=== PATIENT | female | born 1995 | race Caucasian/White ===

== ENCOUNTER → 2024-04-16 12:10 | Outpatient (REF) | payer OTHER, SELFPAY | LOC: PNTC 12:10 | PROVIDERS: ATTENDING PHYSICIAN Advanced Practice Midwife | DX: O60.00 Preterm labor without delivery, unspecified trimester (principal); Z74.01 Bed confinement status | CPT/HCPCS: 76805 ==

== ENCOUNTER 2024-06-26 21:12 | Observation (INO) | payer OTHER, SELFPAY ==
[2024-06-26 21:34] VITALS: BP 115/83; BMI 24.8
[2024-06-26 22:22] LABS: % Basophils 0.1 % (0-2); % Eosinophils 0.7 % (0-6); % Immature Granulocytes 0.7 % (0-0.5); % Lymphocytes 16.9 % (20.5-51.1); % Monocytes 5.8 % (1.7-9.3); % Neutrophils 75.8 % (42.2-75.2); Absolute Eosinophils 0.1 10^3/uL (0-0.7); Absolute Immature Granulocytes 0.1 10^3/uL (0-0.05); Absolute Lymphocytes 1.7 10^3/uL (1.2-3.4); Absolute Monocytes 0.6 10^3/uL (0.1-0.6); Absolute Neutrophils 7.5 10^3/uL (1.4-6.5); Hemoglobin 10.3 g/dL (12.0-16.0); Mean Corp Hgb Conc. 33.2 g/dL (33.0-37.0); Mean Corpuscular Hgb 26.8 pg (27.0-31.0); Mean Corpuscular Volume 80.7 fL (81.0-99.0); Mean Platelet Volume 10.9 fL (7.4-10.4); Nucleated Red Blood Cells % 0 %; Platelet Count 285 10^3/uL (130-400); Red Blood Cell Count 3.84 10^6/uL (4.20-5.40); White Blood Cell Count 9.9 10^3/uL (4.8-10.8)
[2024-06-26 22:27] LABS: Urine Albumin Negative (Neg - Trace); Urine Bilirubin Negative (Negative); Urine Character Clear (Clear); Urine Color Yellow; Urine Glucose Negative (Negative); Urine Ketone Negative (Negative); Urine Leukocyte 1+ (Negative); Urine Nitrite Negative (Negative); Urine Occult Blood Negative (Negative); Urine Urobilinogen Negative (Neg - 1+)
[2024-06-26 22:37] LABS: Urine Bacteria Few (Negative); Urine Red Blood Cell 0-2 /HPF (0-2); Urine Squamous Cell >30 /LPF (Few)
[2024-06-26 22:44] LABS: ALT (SGPT) 688 U/L (0-35); AST (SGOT) 457 U/L (14-36); Albumin 3.5 g/dl (3.5-5.0); Alkaline Phosphatase 278 U/L (38-126); Blood Urea Nitrogen 8 mg/dl (7-17); Calcium 9.4 mg/dl (8.4-10.2); Carbon Dioxide 23 mmol/L (22-30); Chloride 107 mmol/L (98-107); Estimated Creatinine Clearance 124 ml/min; Glucose 99 mg/dl (70-99); Potassium 4.1 mmol/L (3.5-5.1); Sodium 140 mmol/L (135-145); Total Bilirubin 0.8 mg/dl (0.2-1.3); Total Protein 6.7 g/dl (6.3-8.2); eGFR > 60.00
[2024-06-26 22:58] LABS: Uric Acid 3.5 mg/dl (2.5-6.2)
[2024-06-26] MEDS: ACTIGALL PO (23:02)
[2024-06-26 23:28] LABS: Protein/creatinine Ratio 0.3; Urine Protein 15 mg/dl
[2024-06-26 23:43] LABS: INR 0.94; PT 12.9 Sec (11.4-14.6)
[2024-06-27 06:18] LABS: Hematocrit 28.5 % (37.0-47.0); Hemoglobin 9.4 g/dL (12.0-16.0); Mean Corpuscular Hgb 26.9 pg (27.0-31.0); Mean Corpuscular Volume 81.4 fL (81.0-99.0); Mean Platelet Volume 11.3 fL (7.4-10.4); Platelet Count 254 10^3/uL (130-400); Red Cell Dist. Width 12.7 % (11.5-14.5); White Blood Cell Count 9.7 10^3/uL (4.8-10.8)
[2024-06-27 06:41] LABS: ALT (SGPT) 644 U/L (0-35); AST (SGOT) 408 U/L (14-36); Albumin 3.4 g/dl (3.5-5.0); Alkaline Phosphatase 259 U/L (38-126); Blood Urea Nitrogen 7 mg/dl (7-17); Calcium 8.7 mg/dl (8.4-10.2); Carbon Dioxide 21 mmol/L (22-30); Chloride 108 mmol/L (98-107); Estimated Creatinine Clearance 124 ml/min; Glucose 82 mg/dl (70-99); Potassium 3.9 mmol/L (3.5-5.1); Sodium 138 mmol/L (135-145); Total Bilirubin 0.9 mg/dl (0.2-1.3); Total Protein 6.3 g/dl (6.3-8.2); eGFR > 60.00
--- NOTE | 2024-06-27 06:47 | CON.GI ---
Addendum entered and electronically signed by Gabrielle Tang MD 06/27/24 13:16:
I saw and examined the patient.
The SKIRT PANEL ASSEMBLER's note was reviewed and I agree with the note.
29 y/o female POA 31 weeks hx prior childbirth x 3 and no other med issues noted with onset of itchiness in hands and feet. She has labs check OP with report bile salts of 29 and elevation of AST and ALT and admitted for evaluation. On admission
noted with bili 0.8, AST 457, ALT 688, alk phos 278, INR 0.94, WBC 9.9, hbg 10,,3 platelets 285, urine neg bili but + 1 leukocytes, 6-10 WBC and few bacteremia with urine chlamydia/gonorrhoeae pending. Labs several hours after admission with slight
improvement of bili 0.9, AST 408, ALT 644, alk phos 259. 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 Per TILE PRESSER she did have hep C ab and Hep
Bsag neg early in . Only recent travel was to [place]. Vital signs on admission with stable Bp 115/83, HR 86 and remains afebrile.
-increased LFT's primary transaminase elevation. Preserved synthetic function. baseline labs not available. No change in mental status. No preeclampsia.
-itchiness palms and feet/ elevated bile salt level/ hx cholestasis with in past
plan
Possible differential- related liver disease vs viral etiology vs others
Will check hepatitis serology including hep E, also will add HSV/CMV/EBV serology
check tylenol level
Ultrasound abdomen with Doppler
Continue to trend LFT/ INR
continue further care as per OB
Original Note:
Consultation
-
Date/Time Consultation Requested: 06/26/24 2230
Date/Time Consultation Performed: 06/27/24 0800
Requesting Provider: Venita Bowling DO
Performing Provider: YAEL Jerome, Gabrielle Tang MD
Reason for Consultation: increased LFT's
Medical History
Chief Complaint / HPI
Chief Complaint: itching in hand and feet
History of Present Illness:
Pt is a 29yo currently 31 weeks hx prior childbirth x 3 and no other med issues. She admits to labor with first child and cholestasis with 2 of her children. She has been followed by nurse adjunct faculty mathematics department prior to admission and now noted
with onset of itchiness in hands and feet. She has labs check OP with report bile salts of 29 and elevation of AST and ALT and presents for evaluation. On admission noted with bili 0.8, AST 457, ALT 688, alk phos 278, INR 0.94, WBC 9.9, hbg 10,,3
platelets 285, urine neg bili but + 1 leukocytes, 6-10 WBC and few bacteremia with urine chlamydia/gonorrhoeae pending. Labs several hours after admission with slight improvement of bili 0.9, AST 408, ALT 644, alk phos 259. Pt admits to prior
cholestasis but denies any ETOH use, prior hepatitis, IVDA, and only supplement occasional Tylenol use but denies excessive use. Per TILE PRESSER she did have hep C ab and Hep Bsag neg early in . Only recent travel was to [place]. Vital signs on
admission with stable Bp 115/83, HR 86 and remains afebrile.
She admits to fatigue, itchiness and dark urine and some chronic shortness of breath, blurred vision, nausea and constipation ongoing with . She denies fever, chills, dysphagia, GERD, vomiting, abdominal pain, diarrhea,
constipation, or rectal bleeding. She also admits to some dysuria that has resolved.
Past Medical History
Past Medical History: Other ( with first child, prior cholestasis with )
Past Surgical History: Other (oral surgery, childbirth x 3 in past )
Social History
Tobacco: Non-Smoker
Alcohol: None
Drug: None
Living: With Family
Employment: Not Employed
Family History
Family History: Other (denies family hx liver issues )
Allergies / Home Medications
Allergy/AdvReac Type Severity Reaction Status Date / Time
No Known Allergies Allergy Unverified 06/26/24 21:37
�Medication �Instructions �Recorded
Vitamin 1 tab PO DAILY 06/26/24
Review of Systems
-
History Source: Patient
Constitutional: Reports Weight Gain (with ) and Fatigue
EENT: Reports Other (burred vision)
Respiratory: Reports Trouble Breathing (chronic with )
Cardiac: Reports No Symptoms
Abdomen/GI: Reports Nausea
: Reports Dysuria and Dark Urine
Musculoskeletal: Reports No Symptoms
Skin: Reports Itching (palms and feet )
Neurological: Reports No Symptoms
Endocrine: Reports No Symptoms
Hematologic/Lymphatic: Reports No Symptoms
Vital Signs
Temp Pulse Resp BP
98.0 F 86 18 115/83
06/26/24 21:34 06/26/24 21:34 06/26/24 21:34 06/26/24 21:34
Physical Exam
Exam
General: Well Developed, Well Nourished and No Apparent Distress
HEENT: Normocephalic and Anicteric
Respiratory: Clear
Cardiac: Regular Rhythm
GI: Soft, Non Tender and Distended (with pregancy )
Musculoskeletal: No Clubbing and No Cyanosis
Skin: Warm and Dry
Neuro: Awake and Alert
Psych: Calm
Results
WBC 9.7 10^3/uL (4.8-10.8) 06/27/24 05:27
Hgb 9.4 g/dL (12.0-16.0) L 06/27/24 05:27
Hct 28.5 % (37.0-47.0) L 06/27/24 05:27
MCV 81.4 fL (81.0-99.0) 06/27/24 05:27
Plt Count 254 10^3/uL (130-400) 06/27/24 05:27
Absolute Neuts (auto) 7.5 10^3/uL (1.4-6.5) H 06/26/24 22:11
PT 12.9 Sec (11.4-14.6) 06/26/24 23:19
INR 0.94 06/26/24 23:19
Sodium 138 mmol/L (135-145) 06/27/24 05:27
Potassium 3.9 mmol/L (3.5-5.1) 06/27/24 05:27
Chloride 108 mmol/L (98-107) H 06/27/24 05:27
Carbon Dioxide 21 mmol/L (22-30) L 06/27/24 05:27
BUN 7 mg/dl (7-17) 06/27/24 05:27
Creatinine 0.4 mg/dL (0.6-1.0) L 06/27/24 05:27
Calcium 8.7 mg/dl (8.4-10.2) 06/27/24 05:27
Total Bilirubin 0.9 mg/dl (0.2-1.3) 06/27/24 05:27
AST 408 U/L (14-36) H 06/27/24 05:27
ALT 644 U/L (0-35) H* 06/27/24 05:27
Alkaline Phosphatase 259 U/L (38-126) H 06/27/24 05:27
Diagnostic Image Results:
06/27 US abd with ingrid- Pending
Assessment / Plan
-
Pt is a 29yo currenty 31 weeks hx prior childbirth x 3 and no other med issues. She admits to labor with first child and cholestasis with 2 of her children. She has been followed by nurse adjunct faculty [employer] department prior to admission and now noted
with onset of itchiness in hands and feet. She has labs check OP with report bile salts of 29 and elevation of AST and ALT and presents for evaluation. On admission noted with bili 0.8, AST 457, ALT 688, alk phos 278, INR 0.94, WBC 9.9, hbg 10,,3
platelets 285, urine neg bili but + 1 leukocytes, 6-10 WBC and few bacteremia with urine chlamydia/gonorrhoeae pending. Labs several hours after admission with slight improvement of bili 0.9, AST 408, ALT 644, alk phos 259. Pt admits to prior
cholestasis but denies any ETOH use, prior hepatitis, IVDA, and only supplement occasional Tylenol use but denies excessive use. Per TILE PRESSER she did have hep C ab and Hep Bsag neg early in . Only recent travel was to [place]. Vital signs on
admission with stable Bp 115/83, HR 86 and remains afebrile.
-increased LFT's primary transaminase elevation
-itchiness palms and feet
-elevated bile salt level
-hx cholestasis with in past
-occasional Tylenol use
PLAN:
etiology of rise in LFT's unclear-- TILE PRESSER following for underlying Etiology with hx prior cholestasis with prior and elevated bile salts vs viral vs other
check US abd with doppler to exclude underlying liver or vascular issues
NPO prior to US then resume diet
add hepatitis panel including hepatitis E
check Tylenol level with occasional use
trend LFT's- slight improvement this am
INR and platelets normal with good synthetic function of liver -- cont to trend
add viral etiology CMV, HSV, EBV
reviewed with Dr. Kwan and Dr. Mojica
will follow
-
-
-
Thank you for consultation and allowing me to participate in the patient's care. Please call the operations supervisor 2nd shift GI physician during the after hours with any questions or concerns.
[2024-06-27] MEDS: ACTIGALL 300 MG PO ×3 (07:58→22:11)
[2024-06-27] MEDS: CELESTONE SOLUSPAN 2 MG IM (08:01)
[2024-06-27 15:43] LABS: Acetaminophen < 10 ug/ml (10-30)
[2024-06-27] MEDS: LR 1000 IV (16:14)
[2024-06-27 18:55] LABS: Hepatitis B Surface Antigen Negative (Negative)
[2024-06-27 19:12] LABS: Hepatitis B Core Ab, Total Negative (Negative); Hepatitis B Surface Antibody Negative; Hepatitis C Antibody Negative (Negative)
[2024-06-27 20:12] LABS: Hepatitis A Antibody, Total Positive (Negative)
[2024-06-27 21:07] LABS: Hepatitis A IgM Antibody Negative (Negative)
[2024-06-27 21:53] LABS: 24 Hour Urine Total Volume 2450 ml
[2024-06-27 22:20] LABS: 24 Hour Urine Creatinine 0.842 gm/day (0.8-1.8); 24 Hour Urine Protein 367.5 mg/day (42-225); Urine Protein 15 mg/dl (0-12)
[2024-06-28] MEDS: FEOSOL 325 MG PO (07:46)
[2024-06-28] MEDS: ACTIGALL 300 MG PO (07:46)
[2024-06-28] MEDS: CELESTONE SOLUSPAN 2 MG IM (07:48)
[2024-06-28 09:32] LABS: Hematocrit 27.4 % (37.0-47.0); Hemoglobin 9.2 g/dL (12.0-16.0); Mean Corp Hgb Conc. 33.6 g/dL (33.0-37.0); Mean Corpuscular Hgb 27.1 pg (27.0-31.0); Mean Corpuscular Volume 80.6 fL (81.0-99.0); Mean Platelet Volume 10.8 fL (7.4-10.4); Platelet Count 269 10^3/uL (130-400); White Blood Cell Count 10.4 10^3/uL (4.8-10.8)
[2024-06-28 09:39] LABS: PT 12.6 Sec (11.4-14.6)
[2024-06-28 09:51] LABS: ALT (SGPT) 684 U/L (0-35); AST (SGOT) 472 U/L (14-36); Albumin 3.2 g/dl (3.5-5.0); Alkaline Phosphatase 238 U/L (38-126); Blood Urea Nitrogen 7 mg/dl (7-17); Calcium 8.8 mg/dl (8.4-10.2); Carbon Dioxide 23 mmol/L (22-30); Chloride 106 mmol/L (98-107); Estimated Creatinine Clearance 124 ml/min; Glucose 136 mg/dl (70-99); Potassium 4.1 mmol/L (3.5-5.1); Sodium 138 mmol/L (135-145); Total Bilirubin 0.5 mg/dl (0.2-1.3); Total Protein 6.2 g/dl (6.3-8.2); eGFR > 60.00
--- NOTE | 2024-06-28 15:36 | W.PN.UPDATE ---
Addendum entered and electronically signed by Gabrielle Tang MD 06/28/24 16:51:
correction ( error with dictation software ) -informed patient I am not certain about why her liver enzymes were elevated.
Original Note:
Update Note
Progress Note Update
When I went to see the patient this a.m. patient was already discharged by OB team-patient is about to leave. Advised OB team to repeat labs prior to discharge. Informed patient I am certain about why her liver enzymes were elevated. Most of
viral serology ordered were pending. If patient to be discharged recommend close follow-up with OB with repeat labs. If remains elevated will recommend referral to tertiary liver center for further eval
[2024-06-29 18:38] LABS: EBV-EA (D) Ab IgG 40.1 U/mL (0.0-10.9); EBV-VCA IgG Antibodies >750.0 U/mL (0.0-21.9); EBV-VCA IgM Antibodies 31.3 U/mL (0.0-43.9)
[2024-06-29 19:19] LABS: CMV IgM Antibody <8.0 AU/mL (<=29.9)
[2024-06-29 21:46] LABS: CMV IgG Antibody <0.20 U/mL (<=0.70)
[2024-06-30 03:36] LABS: HSV 1/2 Combined Screen, IgG 2.45 IV
[2024-06-30 15:15] LABS: HSV 1 Glycoprotein G Ab, IgG 1.51 IV (<=0.89); HSV 2 Glycoprotein G Ab, IgG 1.33 IV (<=0.89)
== END 2024-06-28 10:00 | disposition home or self-care (01) ==
LOC: LDRP 21:12
PROVIDERS: Nurse Practitioner Adult Health; ADMITTING PHYSICIAN Obstetrics & Gynecology; CONSULT PHYSICIAN Internal Medicine Gastroenterology
DX: O26.643 Intrahepatic cholestasis of pregnancy, third trimester (principal); K76.89 Other specified diseases of liver; O99.013 Anemia complicating pregnancy, third trimester; D64.9 Anemia, unspecified; O26.893 Other specified pregnancy related conditions, third trimester; L29.9 Pruritus, unspecified; Z3A.31 31 weeks gestation of pregnancy; R79.89 Other specified abnormal findings of blood chemistry; O09.213 Supervision of pregnancy with history of pre-term labor, third trimester; O99.613 Diseases of the digestive system complicating pregnancy, third trimester; K59.00 Constipation, unspecified; H53.8 Other visual disturbances; R11.0 Nausea; R06.02 Shortness of breath; R16.0 Hepatomegaly, not elsewhere classified; Z91.199 Patient's noncompliance with other medical treatment and regimen due to unspecified reason
CPT/HCPCS: 59025; 76700; 76816; 80053; 80143; 81003; 81015; 81050; 82570; 84156; 84550; 85025; 85027; 85610; 86644; 86645; 86663; 86664; 86665; 86694; 86695; 86696; 86704; 86706; 86708; 86709; 86803; 86850; 86900; 86901; 87340; 87491; 87591; 93975; G0378

== ENCOUNTER → 2024-07-05 08:19 | Outpatient (REF) | payer OTHER, SELFPAY | LOC: PNTC 08:19 | PROVIDERS: ATTENDING PHYSICIAN Obstetrics & Gynecology | DX: O26.611 Liver and biliary tract disorders in pregnancy, first trimester (principal) | CPT/HCPCS: 59025; 76815 ==

== ENCOUNTER → 2024-07-09 09:39 | Outpatient (REF) | payer OTHER, SELFPAY | LOC: PNTC 09:39 | PROVIDERS: ATTENDING PHYSICIAN Obstetrics & Gynecology | DX: O26.619 Liver and biliary tract disorders in pregnancy, unspecified trimester (principal) | CPT/HCPCS: 59025 ==

== ENCOUNTER → 2024-07-12 08:07 | Outpatient (REF) | payer OTHER, SELFPAY | LOC: PNTC 08:07 | PROVIDERS: ATTENDING PHYSICIAN Obstetrics & Gynecology | DX: O26.619 Liver and biliary tract disorders in pregnancy, unspecified trimester (principal) | CPT/HCPCS: 59025; 76815 ==

== ENCOUNTER → 2024-07-16 10:49 | Outpatient (REF) | payer OTHER, SELFPAY | LOC: PNTC 10:49 | PROVIDERS: ATTENDING PHYSICIAN Obstetrics & Gynecology | DX: O26.619 Liver and biliary tract disorders in pregnancy, unspecified trimester (principal) | CPT/HCPCS: 59025 ==

== ENCOUNTER → 2024-07-19 08:24 | Outpatient (REF) | payer OTHER, SELFPAY | LOC: PNTC 08:24 | PROVIDERS: ATTENDING PHYSICIAN Advanced Practice Midwife | DX: O26.619 Liver and biliary tract disorders in pregnancy, unspecified trimester (principal) | CPT/HCPCS: 59025; 76815 ==

== ENCOUNTER → 2024-07-23 09:16 | Outpatient (REF) | payer OTHER, SELFPAY | LOC: PNTC 09:16 | PROVIDERS: ATTENDING PHYSICIAN Advanced Practice Midwife | DX: O26.619 Liver and biliary tract disorders in pregnancy, unspecified trimester (principal) | CPT/HCPCS: 59025 ==

== ENCOUNTER → 2024-07-26 08:34 | Outpatient (REF) | payer OTHER, SELFPAY | LOC: PNTC 08:34 | PROVIDERS: ATTENDING PHYSICIAN Advanced Practice Midwife | DX: O26.619 Liver and biliary tract disorders in pregnancy, unspecified trimester (principal) | CPT/HCPCS: 59025; 76816 ==

== ENCOUNTER → 2024-08-02 08:47 | Outpatient (REF) | payer OTHER, SELFPAY | LOC: PNTC 08:47 | PROVIDERS: ATTENDING PHYSICIAN Advanced Practice Midwife | DX: O26.649 Intrahepatic cholestasis of pregnancy, unspecified trimester (principal); O26.619 Liver and biliary tract disorders in pregnancy, unspecified trimester | CPT/HCPCS: 59025; 76815 ==

== ENCOUNTER 2024-08-05 04:22 | Inpatient (IN) | payer OTHER, SELFPAY ==
[2024-08-05 04:34] VITALS: BMI 26.6
[2024-08-05 04:51] VITALS: BP 124/90
[2024-08-05] MEDS: LR 1000 IV ×2 (05:45→08:27)
[2024-08-05 05:58] LABS: % Basophils 0.1 % (0-2); % Eosinophils 0.4 % (0-6); % Lymphocytes 12.6 % (20.5-51.1); % Monocytes 5.3 % (1.7-9.3); % Neutrophils 80.6 % (42.2-75.2); Absolute Eosinophils 0.1 10^3/uL (0-0.7); Absolute Immature Granulocytes 0.1 10^3/uL (0-0.05); Absolute Lymphocytes 1.7 10^3/uL (1.2-3.4); Absolute Monocytes 0.7 10^3/uL (0.1-0.6); Absolute Neutrophils 10.9 10^3/uL (1.4-6.5); Hematocrit 30.6 % (37.0-47.0); Hemoglobin 10.1 g/dL (12.0-16.0); Mean Corpuscular Hgb 26.7 pg (27.0-31.0); Nucleated Red Blood Cells % 0 %; Platelet Count 226 10^3/uL (130-400); Red Blood Cell Count 3.78 10^6/uL (4.20-5.40); Red Cell Dist. Width 16.2 % (11.5-14.5); White Blood Cell Count 13.5 10^3/uL (4.8-10.8)
[2024-08-05 06:11] LABS: ALT (SGPT) 27 U/L (0-35); AST (SGOT) 29 U/L (14-36); Albumin 3.8 g/dl (3.5-5.0); Alkaline Phosphatase 194 U/L (38-126); Blood Urea Nitrogen 7 mg/dl (7-17); Calcium 9.1 mg/dl (8.4-10.2); Carbon Dioxide 20 mmol/L (22-30); Chloride 110 mmol/L (98-107); Estimated Creatinine Clearance 119 ml/min; Glucose 103 mg/dl (70-99); Potassium 4.3 mmol/L (3.5-5.1); Sodium 137 mmol/L (135-145); Total Bilirubin 0.3 mg/dl (0.2-1.3); Total Protein 6.9 g/dl (6.3-8.2); eGFR > 60.00
[2024-08-05] MEDS: PENICILLIN 110 UNITS IV (06:22)
[2024-08-05] MEDS: SUBLIMAZE 100 MCG EPIDURAL (09:23)
[2024-08-05] MEDS: FENTANYL/BUPIVACAINE 100 EPIDURAL (09:23)
[2024-08-05] MEDS: PITOCIN 30 UNITS/NSS 500 ML IV (09:52)
[2024-08-05] MEDS: PENICILLIN 55 UNITS IV ×2 (10:02→14:14)
[2024-08-05] MEDS: BENADRYL 25 MG IV (11:16)
[2024-08-05] MEDS: MOTRIN 600 MG PO (21:57)
[2024-08-06] MEDS: MOTRIN 600 MG PO ×3 (08:15→22:34)
[2024-08-06] MEDS: FEOSOL 325 MG PO (09:47)
[2024-08-06] MEDS: SENOKOT-S 1 TABLET PO (09:47)
[2024-08-06 21:36] LABS: Bile Acids (Cholylglycine) 8 umol/L (0-10)
[2024-08-07] MEDS: TYLENOL PO (05:23)
[2024-08-07] MEDS: MOTRIN 600 MG PO ×3 (05:23→15:52)
[2024-08-07] MEDS: FEOSOL 325 MG PO (09:44)
[2024-08-07] MEDS: SENOKOT-S 1 TABLET PO (09:44)
--- NOTE | 2024-08-07 13:41 | CM ---
CM reviewed chart, reviewed with nurse, mother seen regarding PPD screening score. Mother seen bedside with and child, congratulated mother on of son. Mother reports she resides at home with her and her three other children,
ages 12,m10, and 7. Mother reports support of grandparents who are currently watching older children when not in school. Mother confirms supplies needed for child. [facility] as it was recommended to her,
reports her other children attend a separate [employer] but would be interested in transferring to [facility]. Mother interested in maternal VN program, would like to hold off on referral but interested in receiving information, brochure and additional
information provided to mother regarding maternal VN program and support/additional resources.
Plan; home with family, resources provided
[2024-08-07] MEDS: TYLENOL 650 MG PO (15:53)
== END 2024-08-07 17:00 | disposition home or self-care (01) | DRG 807 ==
LOC: LDRP 04:22
PROVIDERS: ADMITTING PHYSICIAN Advanced Practice Midwife
PROC: 10907ZC Drainage of Amniotic Fluid, Therapeutic from Products of Conception, Via Natural or Artificial Opening (ICD-10-PCS; 2024-08-05)
PROC: 6A550ZT Pheresis of Cord Blood Stem Cells, Single (ICD-10-PCS; 2024-08-05)
PROC: 10E0XZZ Delivery of Products of Conception, External Approach (ICD-10-PCS; 2024-08-05)
DX: O26.643 Intrahepatic cholestasis of pregnancy, third trimester (principal); Z37.0 Single live birth; K76.89 Other specified diseases of liver; Z3A.36 36 weeks gestation of pregnancy; O99.824 Streptococcus B carrier state complicating childbirth; O69.1XX0 Labor and delivery complicated by cord around neck, with compression, not applicable or unspecified; O90.81 Anemia of the puerperium; D64.9 Anemia, unspecified
CPT/HCPCS: 59025; 80053; 82239; 85025; 86850; 86900; 86901